=== PATIENT | female | born 1955 | race Caucasian/White ===

== ENCOUNTER 2022-10-03 13:01 | Emergency (ER) | payer BC ==
[~2022-10-03] VITALS: Ht 167.6 cm; Wt 53.5 kg
[2022-10-03 13:06] VITALS: BP_SYST 122
--- NOTE | 2022-10-03 14:00 | NUR ---
PT BIB EMS FROM [facility] WITH C/O RIGHT HIP PAIN 06/13 X2 WEEKS, REPORTS FALL 2 WEEKS AGO BUT XRAY FROM THIS MORNING SHOWED FRACTURE. +PULSES NOTED, DENIES TAKING ANY BLOOD THINNERS, NO OTHER INJURY TO REPORT
--- NOTE | 2022-10-03 14:09 | NUR ---
ER Dr. MALONEY at bedside examining patient.
[2022-10-03] MEDS ORDERED: ONDANSETRON HCL 4 MG/2 ML VIAL IVP ONE ×2 (14:45→19:45)
[2022-10-03] MEDS ORDERED: NS 500 ML IV ONE (14:45)
[2022-10-03] MEDS ORDERED: LIDOCAINE/EPI 2% 1:100000 20 ML VIAL INJ ONE (14:45)
[2022-10-03] MEDS ORDERED: MORPHINE 4 MG INJ. 4 MG/ML VIAL IVP ONE ×2 (14:45→16:30)
--- NOTE | 2022-10-03 14:56 | NUR ---
Radiology at bedside for hip/pelvic X-Ray
--- NOTE | 2022-10-03 14:57 | NUR ---
# 20 gauge angiocath placed to Left wrist. Use of asceptic technique. Opsite placed over site. Blood return noted. Blood for lab drawn from site. Flushed with 10 cc of normal saline. No evidence of infiltration noted. Patient tolerated well.
[2022-10-03 15:01] LABS: BASOPHILS # (AUTO) 0.1 K/uL (0.0-0.2); BASOPHILS % (AUTO) 0.6 % (0.0-2.0); EOSINOPHILS # (AUTO) 0.1 K/uL (0.0-0.4); EOSINOPHILS % (AUTO) 0.6 % (0.0-4.0); HEMATOCRIT 38.8 % (36-48); HEMOGLOBIN 13.8 g/dL (12.0-16.0); LYMPHOCYTES # (AUTO) 1.1 K/uL (1.0-5.5); LYMPHOCYTES % (AUTO) 12.3 % (20.5-51.5); MEAN CORPUSCULAR HEMOGLOBIN 32 pg (27-31); MEAN CORPUSCULAR HGB CONC 36 % (32-36); MEAN CORPUSCULAR VOLUME 89 fL (79.0-98.0); MONOCYTES # (AUTO) 0.8 K/uL (0.0-1.0); MONOCYTES % (AUTO) 9.3 % (1.7-9.3); NEUTROPHILS # (AUTO) 7.1 K/uL (1.8-7.7); NEUTROPHILS % (AUTO) 77.2 % (40.0-70.0); PLATELET COUNT (AUTO) 444 K/uL (130-430); RED BLOOD CELL COUNT(AUTO) 4.35 MIL/uL (4.2-6.2); RED CELL DISTRIBUTION WIDTH 15.7 % (9.0-15.0); WHITE BLOOD COUNT (AUTO) 9.1 K/uL (4.8-10.8)
[2022-10-03 15:11] LABS: ANION GAP 15 (5-15); CALCIUM 9.3 mg/dL (8.4-11.0); CHLORIDE 87 mmol/L (98-107); CREATININE 0.99 mg/dL (0.55-1.30); GLUCOSE 75 mg/dL (70-99); UREA NITROGEN, BLOOD 15 mg/dL (8-21)
[2022-10-03 15:16] LABS: GFR AFRICAN AMERICAN 72 mL/min (>90)
[2022-10-03 15:18] LABS: ALANINE AMINOTRANSFERASE 14 U/L (12-78); ALBUMIN 3.6 g/dL (3.4-4.8); ASPARTATE AMINOTRANSFERASE 21 U/L (10-37); TOTAL BILIRUBIN 0.5 mg/dL (0.0-1.0)
[2022-10-03] MEDS ORDERED: MORPHINE 4 MG INJ. 4 MG/ML VIAL ONE (19:35)
[2022-10-03] MEDS ORDERED: HYDR-3917 PO (20:17)
[2022-10-03 20:22] VITALS: BP_SYST 134
--- NOTE | 2022-10-03 20:25 | NUR ---
Patient given written and verbal discharge instructions and verbalizes understanding. ER MD discussed with patient the results and treatment provided. Patient in stable condition. ID arm band removed. IV catheter removed intact and dressing applied, no active bleeding. Rx of NORCO given. Patient educated on pain management and to follow up with PMD.
== END 2022-10-03 20:17 | disposition home or self-care (01) ==
LOC: SED 13:01
DX: S70.01XA Contusion of right hip, initial encounter (principal); E87.1 Hypo-osmolality and hyponatremia; E87.5 Hyperkalemia; K21.9 Gastro-esophageal reflux disease without esophagitis; Z79.899 Other long term (current) drug therapy; W19.XXXA Unspecified fall, initial encounter; Y93.89 Activity, other specified; Y92.89 Other specified places as the place of occurrence of the external cause; Y99.8 Other external cause status
CPT/HCPCS: 99285; 96374; 96361; 96375; 80053; 85025; 84484; 36415; 93005; 73502; 96376; 72170; J2405; J2270; J7030